=== PATIENT | female | born 1995 | race Hispanic/Latino ===

== ENCOUNTER 2017-02-27 22:33 | Emergency (ER) | payer BC ==
[2017-02-27 22:45] VITALS: BP 127/75; PULSE 88; RESP 16; TEMP 98.2; O2SAT 99
--- NOTE | 2017-02-27 23:40 | ED PDOC ---
Lower Extremity Pain/Injury Time Seen by Provider: 02/27/17 22:52 Chief Complaint (Nursing): Lower Extremity Problem/Injury Chief Complaint (Provider): Right foot injury History Per: Patient History/Exam Limitations: no limitations Onset/Duration Of Symptoms: Hrs Current Symptoms Are (Timing): Still Present Severity: Moderate Pain Scale Rating Of: 6 Additional Complaint(s): PT states one week ago while playing soccer she was having pain over her 2-3 metatarsal region. PT states today while playing soccer she kicked the ball and had immediate pain in the same location, which was more severe than last week. PT states she had surgery on the foot in the past which was cause for concern. Past Medical History Reviewed: Historical Data, Nursing Documentation, Vital Signs Vital Signs: Last Vital Signs Temp 98.2 F 02/27/17 22:42 Pulse 88 02/27/17 22:42 Resp 16 02/27/17 22:42 BP 127/75 02/27/17 22:42 Pulse Ox 99 02/27/17 22:42 - Medical History PMH: No Chronic Diseases - Surgical History Other surgeries: Right foot - Family History Family History: States: No Known Family Hx - Living Arrangements Living Arrangements: With Family - Social History Current smoker - smoking cessation education provided: No Alcohol: Occasional Drugs: Denies - Allergies Allergies/Adverse Reactions: Allergies Allergy/AdvReac Type Severity Reaction Status Date / Time azithromycin [From Zithromax] Allergy RASH Verified 02/27/17 22:42 cefixime [From Suprax] Allergy RASH Verified 02/27/17 22:42 cefpodoxime [From Vantin] Allergy RASH Verified 02/27/17 22:42 clarithromycin [From Biaxin] Allergy RASH Verified 02/27/17 22:42 minocycline Allergy RASH Verified 02/27/17 22:42 Penicillins Allergy RASH Verified 02/27/17 22:42 Review of Systems ROS Statement: Except As Marked, All Systems Reviewed And Found Negative Musculoskeletal: Positive for: Foot Pain Physical Exam - Reviewed Nursing Documentation Reviewed: Yes Vital Signs Reviewed: Yes - Physical Exam Appears: Positive for: Well, Non-toxic, No Acute Distress Head Exam: Positive for: ATRAUMATIC, NORMAL INSPECTION, NORMOCEPHALIC Skin: Positive for: Normal Color, Warm, DRY Eye Exam: Positive for: Normal appearance ENT: Positive for: Normal ENT Inspection Neck: Positive for: Normal, Painless ROM Respiratory: Negative for: Accessory Muscle Use, Respiratory Distress Back: Positive for: Normal Inspection Extremity: Positive for: Normal ROM, Tenderness (2-3 metatarsals on the right ) Neurologic/Psych: Positive for: Alert, Oriented - ECG O2 Sat by Pulse Oximetry: 99 Medical Decision Making Medical Decision Making: Pt placed in a splint and given crutches. PT given information for f/u. 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 Disposition - Clinical Impression Clinical Impression: Foot injury - Patient ED Disposition Is Patient to be Admitted: No Counseled Patient/Family Regarding: Diagnosis, Need For Followup - Disposition Referrals: Maximo Aranda MD [Staff Provider] - Disposition: Routine/Home Disposition Time: 23:39 Condition: GOOD Instructions: Arthralgia (ED)
--- NOTE | 2017-02-28 12:06 | RAD ---
PROCEDURE: Right Foot Radiographs. HISTORY: pain after kicking soccer ball COMPARISON: None available. FINDINGS: BONES: Hallux valgus deformity. Transverse lucency seen on a single view at the base of the 1st metatarsal favored artifactual rather then healing fracture deformity. Correlate with physical exam to exclude point tenderness. No associated soft tissue swelling evident. The remainder of the visualized osseous structures appear intact without acute displaced fracture. JOINTS: No dislocation. SOFT TISSUES: Unremarkable. No evidence of radiopaque foreign body. OTHER FINDINGS: None. IMPRESSION: Hallux valgus deformity. Transverse lucency seen on a single view at the base of the 1st metatarsal favored artifactual rather then healing fracture deformity. Correlate with physical exam to exclude point tenderness. No associated soft tissue swelling evident. Study has been marked for PA review.
== END 2017-02-28 00:05 | disposition home or self-care (01) ==
LOC: H.ER 22:33
DX: S99.921A Unspecified injury of right foot, initial encounter (principal); W21.02XA Struck by soccer ball, initial encounter; Y93.9 Activity, unspecified